=== PATIENT | female | born 1965 | race Caucasian/White ===

== ENCOUNTER → 2018-03-30 | Outpatient (CLI) | payer OTHER | END | disposition home or self-care (01) | LOC: CVU 06:57 | PROVIDERS: ATTEND Internal Medicine Cardiovascular Disease | DX: I34.0 Nonrheumatic mitral (valve) insufficiency (principal) | CPT/HCPCS: 93306 ==

== ENCOUNTER → 2019-02-07 | Outpatient (CLI) | payer OTHER | END | disposition home or self-care (01) | LOC: CFH 13:39 | PROVIDERS: ATTEND Obstetrics & Gynecology Gynecology | DX: N60.01 Solitary cyst of right breast (principal); N63.0 Unspecified lump in unspecified breast | CPT/HCPCS: 76642; 77066; G0279 ==

== ENCOUNTER 2019-03-18 12:01 | Outpatient (CLI) | payer OTHER | END 2019-03-18 23:59 | disposition home or self-care (01) | LOC: RAD 12:01 | PROVIDERS: ATTEND Family Medicine | DX: K57.32 Diverticulitis of large intestine without perforation or abscess without bleeding (principal); K44.9 Diaphragmatic hernia without obstruction or gangrene; M51.37 Other intervertebral disc degeneration, lumbosacral region; Z90.710 Acquired absence of both cervix and uterus; Z72.89 Other problems related to lifestyle | CPT/HCPCS: 74177; Q9967 ==

== ENCOUNTER → 2021-03-15 | Outpatient (CLI) | payer OTHER | END | disposition home or self-care (01) | LOC: CVU 14:08 | PROVIDERS: ATTEND Internal Medicine Cardiovascular Disease | DX: R07.89 Other chest pain (principal) | CPT/HCPCS: 93306; 93356 ==